=== PATIENT | male | born 1960 | race African-American/Black ===

== ENCOUNTER 2021-02-12 15:26 | Emergency (ER) | payer OTHER ==
[~2021-02-12] VITALS: Ht 167.6 cm; Wt 104.0 kg
[2021-02-12 15:37] VITALS: BP 171/104
[2021-02-12] MEDS ORDERED: ACETAMINOPHEN 325MG TABLET PO STA (16:18)
[2021-02-12] MEDS ORDERED: LORAZEPAM 0.5MG TABLET PO ONE (16:30)
[2021-02-12] MEDS ORDERED: TETANUS, DIPHTHERIA, PERTUSSIS VAC/PF 0.5ML (>10YR OLD) IM ONE (16:30)
[2021-02-12] MEDS ORDERED: ACET-2708 MT (17:38)
[2021-02-12] MEDS ORDERED: BO1 TP (17:38)
== END 2021-02-12 17:52 | disposition home or self-care (01) ==
LOC: ER 15:26
DX: S50.12XA Contusion of left forearm, initial encounter (principal); R07.2 Precordial pain; S90.811A Abrasion, right foot, initial encounter; V43.52XA Car driver injured in collision with other type car in traffic accident, initial encounter; Y93.89 Activity, other specified; Y92.488 Other paved roadways as the place of occurrence of the external cause; I10 Essential (primary) hypertension; E11.9 Type 2 diabetes mellitus without complications; I44.4 Left anterior fascicular block
CPT/HCPCS: 71045; 90471; 90715; 93005; 99283